=== PATIENT | female | born 1950 | race Caucasian/White ===

== ENCOUNTER → 2017-07-01 | Outpatient (CLI) | payer MEDICARE, BC ==
[2016-03-11 16:50] VITALS: BP 152/88
[~2017-07-01] MED LIST: APIX5TAB3 PO; BIOT1000 PO; BUPIVACAINE MPF 0.25% 10 ML VIAL. ONE; CALC-507 PO; CYAN250T5 PO; DOCU100C28 PO; DRON400T PO; GABA-586 PO; GLUC1TAB69 PO; HYDR-2762 PO; HYDR12.58 PO; IRBE1TAB PO; LIDOCAINE 1% PF 30 ML VIAL. ONE; METO25TA2 PO; MULT1TAB52 PO; OXYC15TA PO; TEMA30CA PO; VITA1CAP PO
== END | disposition home or self-care (01) ==
LOC: SURG 10:40
PROVIDERS: ATTEND Anesthesiology Pain Medicine
DX: M79.1 Myalgia (principal); I10 Essential (primary) hypertension; M19.90 Unspecified osteoarthritis, unspecified site; Z85.820 Personal history of malignant melanoma of skin; Z85.828 Personal history of other malignant neoplasm of skin
CPT/HCPCS: 20552; 99213; J2001; J3490; 99203; G0463

== ENCOUNTER 2017-07-12 16:09 | Inpatient (IN) | payer MEDICARE, BC ==
[~2017-07-12] VITALS: Ht 165.1 cm; Wt 75.3 kg
[~2017-07-12 16:09] MED LIST changes: -APIX5TAB3 PO; -BUPIVACAINE MPF 0.25% 10 ML VIAL. ONE; -DRON400T PO; -GABA-586 PO; -HYDR-2762 PO; -HYDR12.58 PO; -LIDOCAINE 1% PF 30 ML VIAL. ONE
[2017-07-12] MEDS ORDERED: METOPROLOL TARTRATE 5 MG/5 ML VIAL. IV ONE ×3 (16:24→16:45)
[2017-07-12] MEDS ORDERED: 0.9 % SODIUM CHLORIDE 10 ML DISP.SYRIN. IV PRN (16:30)
--- NOTE | 2017-07-12 16:41 | PHYS DOC ---
Past History Past Medical History: A-Fib, GERD, Hypertension, Other Past Surgical History: Gastric Bypass, Hip Replacement, Other Smoking: Non-smoker Alcohol Use: None Drug Use: None Adult General Chief Complaint Chief Complaint: Palpitations HPI HPI 66-year-old male patient with history of atrial fibrillation and hypertension on metoprolol complaining of intermittent episodes of palpitation and dizziness since yesterday that getting constant since this morning without chest pain, shortness of breath, focal neuro deficit, nausea and vomiting, chills, recent dehydration. Patient states she had the same problem previously with atrial fibrillation with RVR. Review of Systems Review of Systems Constitutional: Denies fever or chills [] Eyes: Denies change in visual acuity, redness, or eye pain [] HENT: Denies nasal congestion or sore throat [] Respiratory: Denies cough or shortness of breath [] Cardiovascular: No additional information not addressed in HPI [] GI: Denies abdominal pain, nausea, vomiting, bloody stools or diarrhea [] : Denies dysuria or hematuria [] Musculoskeletal: Denies back pain or joint pain [] Integument: Denies rash or skin lesions [] Neurologic: Denies headache, focal weakness or sensory changes, reports dizziness [] Endocrine: Denies polyuria or polydipsia [] All other systems were reviewed and found to be within normal limits, except as documented in this note. Current Medications Current Medications Current Medications Medications (Trade) Dose Ordered Sig/Tonia Start Time Stop Time Status Last Admin Dose Admin Metoprolol Tartrate (Lopressor Vial) 5 mg STK-MED ONCE 07/12/17 16:24 07/12/17 16:25 DC Allergies Allergies Allergies Coded Allergies Type Severity Reaction Last Updated Verified No Known Drug Allergies 03/11/16 No Physical Exam Physical Exam Constitutional: Well developed, well nourished, mild distress, non-toxic appearance. [] HENT: Normocephalic, atraumatic, moist oral mucosa Eyes: PERRLA, EOMI, conjunctiva normal, no discharge. [] Neck: Normal range of motion, no tenderness, supple, no stridor. [] Cardiovascular: Irregularly irregular rhythm with tachycardia, no murmur [] Lungs & Thorax: Bilateral breath sounds clear to auscultation [] Abdomen: Bowel sounds normal, soft, no tenderness, no masses, no pulsatile masses. [] Skin: Warm, dry, no erythema, no rash. [] Back: No tenderness, no CVA tenderness. [] Extremities: No tenderness, no cyanosis, no clubbing, ROM intact, no edema. [] Neurologic: Alert and oriented X 3, normal motor function, normal sensory function, no focal deficits noted. [] Psychologic: Affect normal, judgement normal, mood normal. [] EKG EKG [EKG at 1617 showed atrial fibrillation with RVR at rate of 138, LVH, no acute ST and T wave abnormality] Radiology/Procedures Radiology/Procedures [] [address] [address] IMAGING REPORT Signed PATIENT: CHELSIE HERNANDEZ ACCOUNT: [id number] : 1950 LOCATION: ER AGE: 66 SEX: F EXAM STATUS: REG ER ORD. PHYSICIAN: JULIO CÉSAR DIALLO MD REASON: palpitation PROCEDURE: PORTABLE CHEST 1V Portable AP view CXR: Clinical indications: Palpitations. Comparison: November 29, 2014. Findings: No acute lung infiltrate or pleural effusion or pulmonary edema or lung mass or pneumothorax is seen. The heart size, pulmonary vasculature, mediastinum and both reji are unremarkable. Impression: No acute radiographic abnormality is seen. DICTATED AND SIGNED BY: JUSTIN TAN MD DATE: 07/12/17 [id number] CC: LEONARDO CARTWRIGHT MD; JULIO CÉSAR DIALLO MD ~ Course & Med Decision Making Course & Med Decision Making Pertinent Labs and Imaging studies reviewed. (See chart for details) Evaluation of patient in ER showed 66-year-old female patient with history of atrial fibrillation presented with palpitation and dizziness. Patient had atrial fibrillation patient with RVR at rate of 138. Patient treated with Lopressor 5 mg IV 2 because of shortage of Cardizem with improvement of heart rate to 100. Patient had potassium of 3.2 and oral potassium was ordered. Because of fluctuation of the heart rate 1 dose of digoxin was ordered. Dr. Cartwright was informed at 1717 and agreed with admitting patient for observation. Patient informed informed about plan of care. [] Dragon Disclaimer Dragon Disclaimer This electronic medical record was generated, in whole or in part, using a voice recognition dictation system. Critical Care Note Total Time (mins): 60 Departure Departure: Impression: Primary Impression: Atrial fibrillation with RVR Additional Impressions: Hypokalemia Dizziness Disposition: 09 ADMITTED INPATIENT (At 1717) Admitting Physician: Leonardo Cartwright Condition: IMPROVED Referrals: LEONARDO CARTWRIGHT MD (PCP) Problem Qualifiers JULIO CÉSAR DIALLO MD Jul 12, 2017 16:41
[2017-07-12 16:46] LABS: BASO # 0.1 x10^3/uL (0.0-0.2); BASO % 1 % (0-3); EOS # 0.3 x10^3/uL (0.0-0.7); EOS % 4 % (0-3); HEMATOCRIT 41.9 % (36.0-47.0); HEMOGLOBIN 14.9 g/dL (12.0-15.5); LYMPH # 2.2 x10^3/uL (1.0-4.8); LYMPH % 25 % (24-48); MEAN CORPUSCULAR HEMOGLOBIN 32 pg (25-35); MEAN CORPUSCULAR HGB CONC 36 g/dL (31-37); MEAN CORPUSCULAR VOLUME 90 fL (79-100); MONO # 0.8 x10^3/uL (0.0-1.1); MONO % 9 % (0-9); NEUT # 5.5 x10^3uL (1.8-7.7); NEUT % 61 % (31-73); PLATELET COUNT 287 x10^3/uL (140-400); RED BLOOD COUNT 4.67 x10^6/uL (3.50-5.40); RED CELL DISTRIBUTION WIDTH 12.5 % (11.5-14.5)
--- NOTE | 2017-07-12 16:53 | RAD ---
Portable AP view CXR: Clinical indications: Palpitations. Comparison: November 29, 2014. Findings: No acute lung infiltrate or pleural effusion or pulmonary edema or lung mass or pneumothorax is seen. The heart size, pulmonary vasculature, mediastinum and both reji are unremarkable. Impression: No acute radiographic abnormality is seen.
[2017-07-12 17:02] LABS: ALBUMIN 4.3 g/dL (3.4-5.0); ALBUMIN/GLOBULIN RATIO 1.4 (1.0-1.7); CALCIUM 9.2 mg/dL (8.5-10.1); CREATININE 0.8 mg/dL (0.6-1.0); GFR 71.3; POTASSIUM 3.2 mmol/L (3.5-5.1); TOTAL BILIRUBIN 0.4 mg/dL (0.2-1.0); TOTAL PROTEIN 7.3 g/dL (6.4-8.2)
[2017-07-12] MEDS ORDERED: DIGOXIN IV 500 MCG/2 ML AMPUL. IV ONE (17:30)
[2017-07-12] MEDS ORDERED: POTASSIUM CHLORIDE 20 MEQ TABLET.ER. PO ONE (17:45)
[2017-07-12] MEDS ORDERED: HYDROcodone/APAP 5/325MG 1 TAB TABLET PO ONE (17:45)
--- NOTE | 2017-07-12 18:12 | EKG ---
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
[2017-07-12 18:42] VITALS: BP 159/88
[2017-07-12] MEDS ORDERED: HYDR12.58 PO (19:09)
[2017-07-12] MEDS ORDERED: GABA-586 PO (19:09)
[2017-07-12] MEDS ORDERED: HYDR-2762 PO (19:09)
[2017-07-12] MEDS ORDERED: GABAPENTIN 300 MG CAPSULE. PO PRN (19:45)
[2017-07-12] MEDS ORDERED: HYDROcodone/APAP 7.5/325MG 1 TAB TABLET PO PRN (19:45)
[2017-07-12] MEDS ORDERED: TEMAZEPAM 15 MG CAPSULE PO SCH (21:00)
[2017-07-12 23:00] VITALS: BP 102/63
[2017-07-13 06:22] VITALS: BP 124/71
[2017-07-13 06:35] LABS: BASO # 0.1 x10^3/uL (0.0-0.2); BASO % 3 % (0-3); CREATININE 0.7 mg/dL (0.6-1.0); EOS # 0.3 x10^3/uL (0.0-0.7); EOS % 6 % (0-3); GFR 83.2; HEMATOCRIT 37.6 % (36.0-47.0); HEMOGLOBIN 13.3 g/dL (12.0-15.5); LYMPH # 1.8 x10^3/uL (1.0-4.8); LYMPH % 33 % (24-48); MEAN CORPUSCULAR HEMOGLOBIN 32 pg (25-35); MEAN CORPUSCULAR HGB CONC 36 g/dL (31-37); MEAN CORPUSCULAR VOLUME 90 fL (79-100); MONO # 0.6 x10^3/uL (0.0-1.1); MONO % 10 % (0-9); NEUT # 2.7 x10^3uL (1.8-7.7); NEUT % 48 % (31-73); PLATELET COUNT 184 x10^3/uL (140-400); POTASSIUM 3.7 mmol/L (3.5-5.1); RED BLOOD COUNT 4.18 x10^6/uL (3.50-5.40); RED CELL DISTRIBUTION WIDTH 12.4 % (11.5-14.5); WHITE BLOOD COUNT 5.5 x10^3/uL (4.0-11.0)
[2017-07-13] MEDS ORDERED: hydroCHLOROthiazide 12.5 MG CAPSULE PO SCH (09:00)
[2017-07-13] MEDS ORDERED: ENOXAPARIN 40 MG/0.4 ML DISP.SYRIN. SQ SCH (09:00)
[2017-07-13] MEDS ORDERED: LOSARTAN 50 MG TABLET. PO SCH (09:00)
[2017-07-13] MEDS ORDERED: POTASSIUM CHLORIDE 8 MEQ TABLET.ER. PO SCH (09:00)
[2017-07-13] MEDS ORDERED: METOPROLOL SUCC 24HR ER 25 MG TAB.ER.24H. PO SCH (09:00)
--- NOTE | 2017-07-13 09:52 | PDOC2 ---
CONSULT CARDIOLOGY CONSULT CONSULT REQUESTED BY Dr. Paulino REASON FOR CONSULT: Atrial fibrillation HISTORY OF PRESENT ILLNESS: This is a 66-year-old white female with a known history of atrial flutter ablation, who started feeling palpitations on Thursday. This is mild at the time. On Thursday the symptoms persisted. She went for a function at her niece's place and may have had a little bit of wine but probably less than a glass or 2. She felt dizzy, presyncopal, short of breath and weak. She finally came to the hospital around 2 PM. She converted soon after. She feels better. REVIEW OF SYSTEM: She denied any chest pain. She denied any fevers cough or malaise. 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 She takes alcohol on social occasions. She is predominantly a vegetarian. She does not smoke. FAMILY HISTORY: The had coronary disease at the age of 61 Previous medical history: She has a history of hypertension. There is no history of coronary disease congestive heart failure or strokes. There was a history of mild pulmonary hypertension, and moderate left atrial enlargement as well as mild thoracic aortic ectasia PHYSICAL EXAM Gen. appearance: Well-nourished, obese, well developed, in no apparent distress HEENT: Pupils are equal and reactive. Extraocular movements are normal. The sclera is noninjected, anicteric. No obvious pallor. No evidence of arcus senilis. Oral mucosa is moist. Neck: Supple. There is no lymphadenopathy. There is no thyromegaly. The carotids have normal upstroke without bruits he did jugular venous pressure is not elevated. Hepatojugular reflux is absent. Kussmaul sign is absent. Cardiovascular system exam: The apex is and not palpable. There are no precordial pulsations or heaves. There are no thrills. First heart sound is normal. Second heart sounds normal.No murmurs rubs or gallops. Respiratory exam: Chest expansion is normal. Chest expansion is symmetrical. Breath sounds are equal bilaterally. There are no crackles. There are no wheezes. There are no rubs. Abdomen: Obese. No palpable masses or pulsations. There are no bruits. Bowel sounds are normal. Extremities: There is no cyanosis. There is no clubbing. There is no edema. There is no tenderness or swelling. No tremors. Skin: There are no obvious skin rashes. Skin is warm and dry. Neuro: There is no facial asymmetry. Speech is normal. There are no motor deficits. There are no sensory deficits. Gait is normal. EK07/12/17: Left bundle branch block, course atrial fibrillation IMPRESSION Paroxysmal atrial fibrillation: The patient has a prior history of proximal atrial fibrillation requiring hospitalization in 2014. She was last seen by my partner a year ago and she complained of palpitations at the time. She now presents with atrial fibrillation with a heart rate of 138. At this point I would recommend that she start antiarrhythmic drug. I discussed with her about options including staying in hospital for sotalol versus starting Multaq and its possible costs. She would prefer the latter. Her chadsVasc scoreis 3. I discussed about oral anticoagulation, and its inherent bleeding risk and her risks of strokes. We discussed about warfarin versus normal oral anticoagulants and she prefers the latter. We will start Eliquis. Aspirin can be discontinued. Her TSH is pending Left bundle branch block: Appears to be rate related. The QRS appears to be narrow. We will repeat another EKG. Essential hypertension: Her blood pressure is under control. She is on Avalide and metoprolol and hydrochlorothiazide Family history of coronary artery disease: Her sister had coronary disease at age of 61. The patient reports that her lipids were normal. Hypokalemia: Mild. It has improved. The potassium was 3.2. Aortic regurgitation: Mild related to aortic valve sclerosis. Pulmonary hypertension: This has normalized by her last echo. The patient can be discharged today with follow-up in our office This dictation was done using a voice recognition software and make contain inherent peoplesoft business analyst errors Problems: FREYA BALBUENA MD Jul 13, 2017 09:52
[2017-07-13] MEDS ORDERED: APIXABAN 5 MG TABLET. PO SCH (10:00)
[2017-07-13] MEDS ORDERED: DRONEDARONE HCL 400 MG TABLET PO SCH (10:00)
[2017-07-13 10:37] VITALS: BP 118/74
--- NOTE | 2017-07-13 12:49 | EKG ---
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
[2017-07-13] MEDS ORDERED: APIX5TAB3 PO (12:52)
[2017-07-13] MEDS ORDERED: DRON400T PO (13:11)
--- NOTE | 2017-07-14 09:50 | SSS ---
ADMIT DATE: 07/12/2017 HISTORY OF PRESENT ILLNESS: A 66-year-old female came in through the Emergency Room, history of atrial fibrillation and hypertension. The patient is feeling intermittent chest palpitations, fluttering, dizziness since yesterday morning. She denied chest pain, shortness of breath or any neurological deficit. The patient was admitted for atrial fibrillation with rapid ventricular response. PAST MEDICAL HISTORY: The patient's history includes that of AFib, hypertension, abdominal surgeries, cholecystectomy, gastric bypass, musculoskeletal disorders, orthopedic surgery, neck fusion, joint replacement, right hip repair. The patient is under a lot of stress, brother and cat recently, skin cancer, insomnia. IMMUNIZATIONS: Flu and pneumonia up-to-date. FAMILY HISTORY: Diabetes and cardiovascular disease. MEDICATIONS: At home include gabapentin 300 mg t.i.d., hydrocodone 7.5/325 daily p.r.n., Restoril 30 mg at bedtime, metoprolol 25 mg, Cozaar 50, Microzide 12.5 daily, potassium chloride, Multaq 400 mg b.i.d. and Eliquis 5 mg b.i.d. ALLERGIES: No known drug allergies. SOCIAL HISTORY: Denies smoking, alcohol or drug use. REVIEW OF SYSTEMS: Basically denies any headaches, visual change, blurred vision, double vision. Denies any melena, hematochezia, hematemesis and neurologically intact. PHYSICAL EXAMINATION: GENERAL: This is a pleasant white female. VITAL SIGNS: Blood pressure 118/70, respiratory rate 20, pulse 64, afebrile. HEENT: The patient's head was atraumatic, normocephalic. Eyes: PERRLA without jaundice. Mouth and throat were normal. NECK: Supple without JVD or thyromegaly. LUNGS: Diminished throughout, but clear. CARDIOVASCULAR: Irregularly irregular rhythm. ABDOMEN: Soft, nontender, no rebound or guarding. Positive bowel sounds, no hepatosplenomegaly. EXTREMITIES: No clubbing, cyanosis or edema. NEUROLOGIC: The patient was alert and oriented x 3. LABORATORY DATA: Show CBC was all within normal limits. Chemistries show basically all normal except for her TSH was slightly elevated to 5.324, so slightly elevated, otherwise cardiac enzymes were negative. The patient otherwise will continue to be monitored carefully. She was given additional Lanoxin and metoprolol. Heart rate was brought under control. Heart rate down to 64, initially was 136. The patient be evaluated. She was evaluated by Dr. Ontiveros, bulk truck driver who recognized the patient and therefore said she was stable. IMPRESSION: Atrial fibrillation with rapid ventricular response, hypertension, hypothyroidism, hypokalemia that was corrected and went into sinus or back into a controlled rhythm. The patient will be discharged home. See MRAD. Decreased activity and follow up accordingly as an outpatient. LEONARDO CARTWRIGHT MD DR: SCAR/mina JOB#: [id number] / [id number]
== END 2017-07-13 13:35 | disposition home or self-care (01) | DRG 641 ==
LOC: ER 16:09 → 1 SOUTH 18:30
PROVIDERS: ADMIT Family Medicine; ATTEND Family Medicine
DX: E87.6 Hypokalemia (principal); I27.20 Pulmonary hypertension, unspecified; I48.0 Paroxysmal atrial fibrillation; E03.9 Hypothyroidism, unspecified; I10 Essential (primary) hypertension; K21.9 Gastro-esophageal reflux disease without esophagitis; I44.7 Left bundle-branch block, unspecified; I35.1 Nonrheumatic aortic (valve) insufficiency; Z96.641 Presence of right artificial hip joint; Z80.8 Family history of malignant neoplasm of other organs or systems; Z82.49 Family history of ischemic heart disease and other diseases of the circulatory system; Z83.3 Family history of diabetes mellitus; Z98.1 Arthrodesis status; Z98.84 Bariatric surgery status; Z79.899 Other long term (current) drug therapy; Z85.828 Personal history of other malignant neoplasm of skin
CPT/HCPCS: 36415; 71045; 80048; 80053; 82553; 83735; 83880; 84443; 84484; 85025; 85379; 85610; 93005; 96374; 96375; J1160; J1650; J3490; 99291-25

== ENCOUNTER → 2017-07-16 | Outpatient (CLI) | payer MEDICARE, BC ==
[2017-07-13 10:37] VITALS: BP 118/74
[~2017-07-16] MED LIST changes: +APIX5TAB3 PO; +DRON400T PO; +GABA-586 PO; +HYDR-2762 PO; +HYDR12.58 PO
== END | disposition home or self-care (01) ==
LOC: SURG 11:06
PROVIDERS: ATTEND Anesthesiology Pain Medicine
DX: M51.36 Other intervertebral disc degeneration, lumbar region (principal); M47.816 Spondylosis without myelopathy or radiculopathy, lumbar region; C80.1 Malignant (primary) neoplasm, unspecified; I10 Essential (primary) hypertension; Z98.890 Other specified postprocedural states
CPT/HCPCS: 99213

== ENCOUNTER → 2017-08-21 | Outpatient (CLI) | payer MEDICARE, BC | END | disposition home or self-care (01) | LOC: SURG 09:45 | PROVIDERS: ATTEND Anesthesiology Pain Medicine | DX: M54.16 Radiculopathy, lumbar region (principal); M54.12 Radiculopathy, cervical region; I48.0 Paroxysmal atrial fibrillation; K21.9 Gastro-esophageal reflux disease without esophagitis; I10 Essential (primary) hypertension; Z79.899 Other long term (current) drug therapy | CPT/HCPCS: 99214 ==

== ENCOUNTER → 2017-09-10 | Outpatient (CLI) | payer MEDICARE, BC ==
[~2017-09-10] MED LIST changes: +BUPIVACAINE MPF 0.5% 30 ML VIAL. ONE; +LIDOCAINE 1% PF 30 ML VIAL. ONE
== END | disposition home or self-care (01) ==
LOC: SURG 13:25
PROVIDERS: ATTEND Anesthesiology Pain Medicine
DX: M47.816 Spondylosis without myelopathy or radiculopathy, lumbar region (principal); M51.26 Other intervertebral disc displacement, lumbar region; I10 Essential (primary) hypertension; Z72.89 Other problems related to lifestyle; Z87.39 Personal history of other diseases of the musculoskeletal system and connective tissue; Z85.828 Personal history of other malignant neoplasm of skin; Z98.890 Other specified postprocedural states
CPT/HCPCS: 64490; 64491; 64493; 64494; J2001; J3490

== ENCOUNTER → 2017-09-24 | Outpatient (CLI) | payer MEDICARE, BC | LOC: SURG 13:08 | PROVIDERS: ATTEND Anesthesiology Pain Medicine | DX: M47.816 Spondylosis without myelopathy or radiculopathy, lumbar region (principal); I10 Essential (primary) hypertension; Z72.89 Other problems related to lifestyle; Z87.39 Personal history of other diseases of the musculoskeletal system and connective tissue; Z85.828 Personal history of other malignant neoplasm of skin; Z98.890 Other specified postprocedural states | CPT/HCPCS: 64493; 64494; J2001; J3490 ==

== ENCOUNTER → 2017-10-15 | Outpatient (CLI) | payer MEDICARE, BC ==
[~2017-10-15] MED LIST changes: -BUPIVACAINE MPF 0.5% 30 ML VIAL. ONE; -LIDOCAINE 1% PF 30 ML VIAL. ONE
== END | disposition home or self-care (01) ==
LOC: SURG 09:50
PROVIDERS: ATTEND Anesthesiology Pain Medicine
DX: M47.816 Spondylosis without myelopathy or radiculopathy, lumbar region (principal); F11.90 Opioid use, unspecified, uncomplicated
CPT/HCPCS: 99213

== ENCOUNTER → 2021-08-19 | Outpatient (CLI) | payer MEDICARE, BC ==
[~2021-08-19] MED LIST changes: -DRON400T PO; +DRON400T6 PO; -HYDR-2762 PO; +HYDR-2765 PO; +MULT-445 PO; -MULT1TAB52 PO; -OXYC15TA PO; +OXYC15TA61 PO
[2021-08-19 18:54] LABS: BASO # 0.1 x10^3/uL (0.0-0.2); BASO % 2 % (0-3); EOS # 0.1 x10^3/uL (0.0-0.7); EOS % 2 % (0-3); HEMATOCRIT 39.1 % (36.0-47.0); HEMOGLOBIN 13.4 g/dL (12.0-15.5); LYMPH # 1.2 x10^3/uL (1.0-4.8); LYMPH % 23 % (24-48); MEAN CORPUSCULAR HEMOGLOBIN 34 pg (25-35); MEAN CORPUSCULAR HGB CONC 34 g/dL (31-37); MEAN CORPUSCULAR VOLUME 99 fL (79-100); MONO # 0.6 x10^3/uL (0.0-1.1); MONO % 11 % (0-9); NEUT # 3.3 x10^3uL (1.8-7.7); NEUT % 63 % (31-73); PLATELET COUNT 212 x10^3/uL (140-400); RED BLOOD COUNT 3.93 x10^6/uL (3.50-5.40); RED CELL DISTRIBUTION WIDTH 12.6 % (11.5-14.5); WHITE BLOOD COUNT 5.2 x10^3/uL (4.0-11.0)
[2021-08-19 19:07] LABS: ALBUMIN 4.2 g/dL (3.4-5.0); ALBUMIN/GLOBULIN RATIO 1.8 (1.0-1.7); CALCIUM 9.1 mg/dL (8.5-10.1); CREATININE 1.3 mg/dL (0.6-1.0); GFR 40.2; MAGNESIUM 1.9 mg/dL (1.8-2.4); POTASSIUM 3.8 mmol/L (3.5-5.1); TOTAL BILIRUBIN 0.7 mg/dL (0.2-1.0); TOTAL PROTEIN 6.5 g/dL (6.4-8.2)
[2021-08-19 19:17] LABS: CLARITY,URINE HAZY; COLOR,URINE YELLOW; GLUCOSE,URINE NEG (NEG); NITRITE,URINE NEG (NEG); UROBILINOGEN,URINE 0.2 mg/dL (0.2 mg/dL)
[2021-08-19 19:18] LABS: BACTERIA,URINE MOD /HPF (0-FEW); SQUAMOUS EPITHELIAL CELL,UR FEW /LPF; WBC,URINE 20-40 /HPF (0-4)
[2021-08-20 18:38] LABS: CHOLESTEROL/HDL RATIO 2.8; FREE T4 0.88 ng/dL (0.76-1.46); THYROID STIM HORMONE (TSH) 3.599 uIU/mL (0.358-3.740)
[2021-08-21 00:07] LABS: HEMOGLOBIN A1C 5.2 % (4.8-5.6)
== END ==
LOC: LAB 17:26
PROVIDERS: ATTEND Family Medicine
DX: I10 Essential (primary) hypertension (principal); E16.1 Other hypoglycemia; E78.01 Familial hypercholesterolemia
CPT/HCPCS: 36415; 80053; 80061; 81001; 82550; 83036; 83735; 84439; 84443; 84484; 85025; 87086